=== PATIENT | female | born 1970 | race Caucasian/White ===

== ENCOUNTER 2016-12-31 16:19 | Emergency (ER) | payer MEDICAID ==
[~2016-12-31] VITALS: Ht 160 cm; Wt 85.9 kg
[~2016-12-31 16:19] MED LIST: OMEP20CA10 PO
[2016-12-31] MEDS ORDERED: KETOROLAC 60MG/2ML VIAL IM STA (16:41)
[2016-12-31 17:00] LABS: BASOPHILS % 0.4 % (0.0-2.0); EOSINOPHILS % 1.1 % (0.0-5.0); HEMOGLOBIN. 12.1 g/dL (12.0-16.0); MEAN CORPUSCULAR HEMOGLOBIN 28.8 pg (28.0-32.0); MEAN CORPUSCULAR VOLUME 85.2 fL (81.0-99.0); MEAN PLATELET VOLUME 8.3 fl (7.4-10.4); NEUTROPHILS % 77.5 % (40.0-76.0); PLATELET 165 x1000/uL (130-400); RED BLOOD CELL COUNT 4.22 mill/uL (4.2-5.4); RED CELL DISTRIBUTION WIDTH 12.4 % (11.6-14.6)
[2016-12-31 17:05] LABS: CHLORIDE 106 mEq/L (98-107)
[2016-12-31 17:13] LABS: CARBON DIOXIDE 27 mEq/L (21-32)
[2016-12-31 17:34] LABS: CLARITY URINE TURBID (CLEAR); COLOR URINE YELLOW (YELLOW); GLUCOSE URINE NEGATIVE (NEGATIVE); KETONES URINE NEGATIVE (NEGATIVE); LEUKOCYTE ESTERASE URINE 3+ (NEGATIVE); NITRITE URINE NEGATIVE (NEGATIVE); OCCULT BLOOD URINE 2+ (NEGATIVE); PH URINE 7.5 (4.5-8.0); PROTEIN URINE NEGATIVE (NEGATIVE); SPECIFIC GRAVITY URINE 1.004 (1.005-1.030); UROBILINOGEN URINE 0.2 E.U./dL (0.2-1.0)
[2016-12-31] MEDS ORDERED: NITROFURANTOIN 100MG M/M CAPSULE PO ONE (18:15)
[2016-12-31 19:01] VITALS: BP 116/78
== END 2016-12-31 19:07 | disposition home or self-care (01) ==
LOC: ER 16:59
DX: N39.0 Urinary tract infection, site not specified (principal); Z90.710 Acquired absence of both cervix and uterus
CPT/HCPCS: 36415; 80053; 81001; 81025; 83690; 85025; 96372; 99284; J1885; Z7610

== ENCOUNTER 2017-09-20 06:38 | Emergency (ER) | payer MEDICAID ==
[~2017-09-20] VITALS: Ht 152.4 cm; Wt 82.0 kg
[2017-09-20 06:57] VITALS: BP 131/79
== END 2017-09-20 08:21 | disposition home or self-care (01) ==
LOC: ER 08:06
DX: B02.9 Zoster without complications (principal); M54.5 Low back pain
CPT/HCPCS: 99283

== ENCOUNTER 2019-02-18 07:36 | Emergency (ER) | payer MEDICAID ==
[~2019-02-18] VITALS: Ht 165.1 cm; Wt 90.0 kg
[~2019-02-18 07:36] MED LIST changes: -OMEP20CA10 PO; +OMEP20CA5 PO
[2019-02-18] MEDS ORDERED: VISCOUS LIDOCAINE 2% 15 ML UDC PO STA (08:20)
[2019-02-18] MEDS ORDERED: SODIUM CHLORIDE 0.9% 1,000 ML IV ONE (08:20)
[2019-02-18] MEDS ORDERED: MORPHINE SULFATE 4 MG/ML CPJ (NOT FOR IM USE) IV STA (08:20)
[2019-02-18] MEDS ORDERED: ONDANSETRON HCL 4MG/2ML INJ IV STA (08:20)
[2019-02-18] MEDS ORDERED: DICYCLOMINE 10 MG/5 ML ORAL SYR PO STA (08:20)
[2019-02-18] MEDS ORDERED: MAGNESIUM/ALUMINUM HYDROXIDE/SIMETHICONE 30ML UDC PO STA (08:20)
[2019-02-18 09:19] LABS: BASOPHILS % 0.3 % (0.0-2.0); EOSINOPHILS % 0.1 % (0.0-5.0); HEMATOCRIT. 41.4 % (36.0-48.0); HEMOGLOBIN. 14.1 g/dL (12.0-16.0); LYMPHOCYTES % 7.8 % (20.0-50.0); MEAN CORPUSCULAR HEMOGLOBIN 29.6 pg (28.0-32.0); MEAN CORPUSCULAR VOLUME 86.4 fL (81.0-99.0); MEAN PLATELET VOLUME 8.6 fl (7.4-10.4); NEUTROPHILS % 86.8 % (40.0-76.0); PLATELET 171 x1000/uL (130-400); RED BLOOD CELL COUNT 4.78 mill/uL (4.2-5.4); RED CELL DISTRIBUTION WIDTH 12.8 % (11.6-14.6)
[2019-02-18 09:19] LABS: CLARITY URINE CLEAR (CLEAR); COLOR URINE YELLOW (YELLOW); KETONES URINE NEGATIVE (NEGATIVE); LEUKOCYTE ESTERASE URINE TRACE (NEGATIVE); NITRITE URINE NEGATIVE (NEGATIVE); OCCULT BLOOD URINE NEGATIVE (NEGATIVE); PH URINE 7.5 (4.5-8.0); PROTEIN URINE NEGATIVE (NEGATIVE); UROBILINOGEN URINE 0.2 E.U./dL (0.2-1.0)
[2019-02-18 09:23] LABS: CHLORIDE 105 mEq/L (98-107)
[2019-02-18 09:25] LABS: PROTHROMBIN TIME 10.2 sec (9.6-11.0)
[2019-02-18 11:01] VITALS: BP 135/88
== END 2019-02-18 11:07 | disposition home or self-care (01) ==
LOC: ER 07:36
DX: R10.13 Epigastric pain (principal); Z98.890 Other specified postprocedural states; Z90.49 Acquired absence of other specified parts of digestive tract
CPT/HCPCS: 36415; 80053; 81003; 81025; 83690; 85025; 85610; 96361; 96374; 99284; J2405; J7030; J2270